=== PATIENT | female | born 1985 | race African-American/Black ===

== ENCOUNTER 2017-06-23 12:47 | Emergency (ER) | payer SELFPAY ==
[2017-06-23 13:51] LABS: Absolute Lymphocytes (CBC) 2.2 K/uL (0.7-4.9); Absolute Monocytes 0.6 K/uL (0.1-1.3); Absolute Neutrophil 8.7 K/uL (1.8-8.0); Basophils % 0.6 % (0-1.3); Eosinophils % 0.1 % (0-4.4); Hematocrit 32.1 % (36.0-45.0); Lymphocytes % 19.1 % (15.3-44.8); MCH 27.7 pg (27.0-35.0); MCV 87.5 fL (80-100); MPV 7.3 fL (7.6-11.3); Monocytes % 5.1 % (3.3-12.3); RBC Red Blood Cell Count 3.67 M/uL (3.86-4.86)
[2017-06-23 13:55] LABS: Protime INR 1.03
[2017-06-23 14:03] LABS: Bicarbonate 24 mEq/L (21-31); Glucose Level 102 mg/dL (65-120); Potassium 3.2 mEq/L (3.6-5.0); Sodium Level 138 mEq/L (135-145)
[2017-06-23 14:09] LABS: ALT/SGPT 13 IU/L (10-60); AST/SGOT 24 IU/L (10-42); Albumin 3.6 g/dL (3.2-5.5); Alkaline Phosphatase 71 IU/L (42-121); BUN Blood Urea Nitrogen 10 mg/dL (6-20); Bilirubin Direct < 0.1 mg/dL (0-0.2); Bilirubin Total 0.5 mg/dL (0.3-1.2); Protein, Total 7.3 g/dL (6.0-8.3)
[2017-06-23 14:16] LABS: Alcohol Serum/Plasma < 10 mg/dl; Salicylates Level < 4.0 mg/dl (<30)
--- NOTE | 2017-06-23 14:39 | EKG ---
Test Date: 2017-06-23 Test Time: 12:52:30 Directional Drill Operator: CESAR MEASUREMENT RESULTS: Intervals: Rate: 96 MS: 148 QRSD: 80 QT: 342 QTc: 432 [place]: P: 42 MS: 148 QRS: 33 T: 26 INTERPRETIVE STATEMENTS: Normal sinus rhythm Normal ECG No previous ECG available for comparison Electronically Signed On 06-23-17 14:38:50 CDT by Roscoe Carter
[2017-06-23] MEDS ORDERED: POTASSIUM CL SA 10 MEQ TAB PO ONE (14:44)
--- NOTE | 2017-06-23 15:05 | ER ---
Nurse's Notes [facility] Name: Chikis Murrieta Age: 31 yrs Sex: Female : 1985 Arrival Date: 06/23/2017 Time: 12:50 Bed 6 Private MD: Diagnosis: Weakness;Syncope and collapse-near;Hypokalemia;Abuse of non-psychoactive substances Presentation: 06/23 12:40 Presenting complaint: Presenting complaint: EMS states: was called out for the pt at [facility] for a panic attack, pt reported she had smoked a blunt, [employer] showed up and pt was told to go home. Pt went back to her apartment and called 911, stated she was SOB and was having a panic attack. Pt was A\\T\\O x3 for EMS BP 144/84 HR 117 96% RA BS-248 Temp-99.3, pupils pinpoint and reactive. Pt stated that she had a on July 01 with no complications. Pt told EMS on the run that her phone was possessed. 12:40 Transition of care: patient was not received from another setting of care. Onset of sv symptoms was June 23, 2017. Care prior to arrival: Glucose check: 248. 12:40 Acuity: CALLY 3 sv 12:40 Method Of Arrival: EMS: [facility] 12:41 Initial Sepsis Screen: Does the patient meet any 2 criteria? HR > 90 bpm. Yes Does the sv patient have a suspected source of infection? No. Patient's initial sepsis screen is negative. Historical: - Allergies: 13:56 Ibuprofen; sv - Home Meds: 13:56 Percocet Oral [Active]; sv - PMHx: 13:56 None; sv - PSHx: 13:56 ; sv - Immunization history:: Adult Immunizations up to date. - Social history:: Smoking status: Patient uses tobacco products, smokes one pack cigarettes per day. Patient uses street drugs, marijuana, Patient/guardian denies using alcohol. - Family history:: not pertinent. Screenin:00 Abuse screen: Denies threats or abuse. Denies injuries from another. Nutritional sv screening: No deficits noted. Tuberculosis screening: No symptoms or risk factors identified. Fall Risk None identified. Assessment: 12:50 Reassessment: Pt was undressed to get placed on the patient office rep and a bag of green sv leafy substance fell out of the pt's bra in a bag. [employer] called to come take the substance. General: Appears distressed, uncomfortable, obese, well developed, Behavior is anxious, Smells of marijuana. General: Reports "I had a baby on the nd by .". Pain: Denies pain. Neuro: Level of Consciousness is awake, alert, obeys commands, Oriented to person, place, time, situation, Moves all extremities. Full function Speech is normal, Facial symmetry appears normal, Reports "I felt like I was going to fall over.". Cardiovascular: Heart tones S1 S2 present Patient's skin is warm and dry. Pulses are 3+ in right radial artery and left radial artery Rhythm is sinus tachycardia. Respiratory: Reports shortness of breath on exertion Airway is patent Respiratory effort is even, unlabored, Respiratory pattern is regular, symmetrical, Breath sounds are clear bilaterally. Derm: Skin is clammy, Skin temperature is warm. Musculoskeletal: Range of motion: intact in all extremities. 13:30 Reassessment: Patient appears in no apparent distress at this time. Patient and/or sv family updated on plan of care and expected duration. Pain level reassessed. Patient is alert, oriented x 3, equal unlabored respirations, skin warm/dry/pink. Patient states feeling better. Patient states symptoms have improved. 14:30 Reassessment: Patient appears in no apparent distress at this time. Patient and/or sv family updated on plan of care and expected duration. Pain level reassessed. Patient is alert, oriented x 3, equal unlabored respirations, skin warm/dry/pink. Pt appeared to be sleeping with eyes closed. Pt easily rousable with verbal stimuli. Patient states feeling better. Patient states symptoms have improved. 15:20 Reassessment: Pt came out of the room yelling "Yall still aint gave me no pain sv medicine, I need some percocet or hydrocodone. Yall need to tell the dentist doctor to give me something for my tooth! Yall still aint done nothing for me." Code purple called. 15:31 Reassessment: [employer] here speaking with the pt. sv Vital Signs: 12:45 BP 150 / 84; Pulse 129; Resp 18; Temp 99.1(O); Pulse Ox 100% on R/A; Height 5 ft. 2 in. sv (157.48 cm) (R); Pain 5/10; 13:15 BP 97 / 55; Pulse 93; Resp 20; Pulse Ox 97% ; sv 13:45 BP 109 / 85; Pulse 65 MON; Resp 18; Pulse Ox 100% on R/A; sv 14:30 BP 109 / 70; Pulse 72; Resp 18; Pulse Ox 98% ; sv 15:00 BP 105 / 89; Pulse 69; Resp 18; Pulse Ox 96% ; sv 13:45 Sinus Rhythm sv ED Course: 12:50 Patient arrived in ED. sv 12:51 Evie Jamil RN is Primary Nurse. sv 12:52 EKG done, by audio visual technician. reviewed by Nile Chin MD. at1 13:07 Nile Chin MD is Attending Physician. christel 13:55 Triage completed. sv 14:21 X-ray completed. Portable x-ray completed in exam room. Patient tolerated procedure jb2 well. Note: PT'S ABDOMEN SHIELDED FOR XRAY. 14:30 Chest Single View XRAY In Process Unspecified. EDNC 15:00 Initial lab(s) drawn, by vt, sent to lab. Inserted saline lock: 18 gauge in right sv antecubital area, using aseptic technique. Blood collected. Flushed right antecubital with 5 ml normal saline. 15:00 Patient has correct armband on for positive identification. Placed in gown. Bed in low sv position. Call light in reach. Side rails up X2. coremaker floor on. Pulse ox on. NIBP on. Door closed. Head of bed elevated. 15:00 Arm band placed on right wrist. sv 15:27 No provider procedures requiring assistance completed. IV discontinued, intact, sv bleeding controlled, No redness/swelling at site. Pressure dressing applied. Administered Medications: 14:30 Drug: Potassium Chloride 40 mEq Route: PO; sv 15:28 Follow up: Response: No adverse reaction sv Outcome: 15:04 Discharge ordered by . christel 15:28 Discharged to home ambulatory. sv 15:28 Condition: stable 15:28 Discharge instructions given to patient, Instructed on discharge instructions, follow up and referral plans. Demonstrated understanding of instructions, follow-up care. 15:32 Patient left the ED. sv Signatures: Dispatcher [employer] [facility] Evie Jamil RN RN sv Anderson, Corey, MD MD cha echter, Vasquez jb2 Charis de anda, clinical trial data manager EKG Tat1 Corrections: (The following items were deleted from the chart) 13:55 12:40 Presenting complaint: sv sv 15: 15:00 General: Appears distressed, uncomfortable, obese, well developed, Behavior is sv anxious, Smells of marijuana. sv 15: 15:00 Pain: Denies pain. sv sv 15: 15:00 Neuro: Level of Consciousness is awake, alert, obeys commands, Oriented to sv person, place, time, situation, Moves all extremities. Full function Speech is normal, Facial symmetry appears normal, Reports "I felt like I was going to fall over.". sv 15: 15:00 Cardiovascular: Heart tones S1 S2 present Patient's skin is warm and dry. Pulses sv are 3+ in right radial artery and left radial artery Rhythm is sinus tachycardia sv 15: 15:00 Respiratory: Reports shortness of breath on exertion Airway is patent Respiratory sv effort is even, unlabored, Respiratory pattern is regular, symmetrical, Breath sounds are clear bilaterally. sv 15: 15:00 Derm: Skin is clammy, Skin temperature is warm sv sv 15: 15:00 Musculoskeletal: Range of motion: intact in all extremities, sv sv 15: 15:00 Reassessment: Pt was undressed to get placed on the patient office rep and a bag of sv green leafy substance fell out of the pt's bra in a bag. [employer] called to come take the substance. sv 15: 15:00 General: Reports "I had a baby on the 22nd by ." sv sv 15:31 15:20 Reassessment: Pt came out of the room yelling "Yall still aint gave me no pain sv medicine, I need some percocet or hydrocodone. Yall need to tell the dentist doctor to give me something for my tooth! Yall still aint done nothing for me." sv 16:32 14:30 Reassessment: Patient appears in no apparent distress at this time. Patient sv and/or family updated on plan of care and expected duration. Pain level reassessed. Patient is alert, oriented x 3, equal unlabored respirations, skin warm/dry/pink. Patient states feeling better. Patient states symptoms have improved. sv
--- NOTE | 2017-06-23 15:05 | EDPHYS ---
Physician Documentation [facility] Name: Chikis Murrieta Age: 31 yrs Sex: Female : 1985 Arrival Date: 06/23/2017 Time: 12:50 Bed 6 Private MD: ED Physician Nile Chin HPI: 06/23 13:18 This 31 yrs old Black Female presents to ER via Unassigned with complaints of Anxiety, christel Shortness Of Breath. 13:18 The patient has shortness of breath with light activity. Onset: The symptoms/episode christel began/occurred just prior to arrival. Duration: The symptoms are continuous, but are steadily getting better. The patient's shortness of breath has no apparent modifying factors. Associated signs and symptoms: The patient has no apparent associated signs or symptoms. Severity of symptoms: At their worst the symptoms were mild moderate in the emergency department the symptoms are unchanged. The patient has not experienced similar symptoms in the past. Historical: - Allergies: 13:56 Ibuprofen; sv - Home Meds: 13:56 Percocet Oral [Active]; sv - PMHx: 13:56 None; sv - PSHx: 13:56 ; sv - Immunization history:: Adult Immunizations up to date. - Social history:: Smoking status: Patient uses tobacco products, smokes one pack cigarettes per day. Patient uses street drugs, marijuana, Patient/guardian denies using alcohol. - Family history:: not pertinent. ROS: 13:23 Constitutional: Negative for fever, chills, and weight loss, Eyes: Negative for injury, christel pain, redness, and discharge, ENT: Negative for injury, pain, and discharge, Neck: Negative for injury, pain, and swelling, Cardiovascular: Negative for chest pain, palpitations, and edema, Abdomen/GI: Negative for abdominal pain, nausea, vomiting, diarrhea, and constipation, Back: Negative for injury and pain, : Negative for injury, bleeding, discharge, and swelling, MS/Extremity: Negative for injury and deformity, Skin: Negative for injury, rash, and discoloration, Psych: Negative for depression, anxiety, suicide ideation, homicidal ideation, and hallucinations, Allergy/Immunology: Negative for hives, rash, and allergies, Endocrine: Negative for neck swelling, polydipsia, polyuria, polyphagia, and marked weight changes, Hematologic/Lymphatic: Negative for swollen nodes, abnormal bleeding, and unusual bruising. 13:23 Respiratory: Positive for cough, shortness of breath. 13:23 Neuro: Positive for altered mental status, syncope, weakness. Exam: 13:23 Constitutional: This is a well developed, well nourished patient who is awake, alert, christel and in no acute distress. Head/Face: Normocephalic, atraumatic. Eyes: Pupils equal round and reactive to light, extra-ocular motions intact. Lids and lashes normal. Conjunctiva and sclera are non-icteric and not injected. Cornea within normal limits. Periorbital areas with no swelling, redness, or edema. ENT: Nares patent. No nasal discharge, no septal abnormalities noted. Tympanic membranes are normal and external auditory canals are clear. Oropharynx with no redness, swelling, or masses, exudates, or evidence of obstruction, uvula midline. Mucous membranes moist. Neck: Trachea midline, no thyromegaly or masses palpated, and no cervical lymphadenopathy. Supple, full range of motion without nuchal rigidity, or vertebral point tenderness. No Meningismus. Chest/axilla: Normal chest wall appearance and motion. Nontender with no deformity. No lesions are appreciated. Respiratory: Lungs have equal breath sounds bilaterally, clear to auscultation and percussion. No rales, rhonchi or wheezes noted. No increased work of breathing, no retractions or nasal flaring. Abdomen/GI: Soft, non-tender, with normal bowel sounds. No distension or tympany. No guarding or rebound. No evidence of tenderness throughout. Back: No spinal tenderness. No costovertebral tenderness. Full range of motion. Skin: Warm, dry with normal turgor. Normal color with no rashes, no lesions, and no evidence of cellulitis. MS/ Extremity: Pulses equal, no cyanosis. Neurovascular intact. Full, normal range of motion. Neuro: Awake and alert, GCS 15, oriented to person, place, time, and situation. Cranial nerves II-XII grossly intact. Motor strength 5/5 in all extremities. Sensory grossly intact. Cerebellar exam normal. Normal gait. Psych: Awake, alert, with orientation to person, place and time. Behavior, mood, and affect are within normal limits. 13:23 Chest/axilla: Inspection: normal, Palpation: is normal, Axilla: are normal. 13:23 Cardiovascular: Rate: normal, Rhythm: regular, Pulses: no pulse deficits are appreciated, Edema: is not appreciated, JVD: is not appreciated. Vital Signs: 12:45 BP 150 / 84; Pulse 129; Resp 18; Temp 99.1(O); Pulse Ox 100% on R/A; Height 5 ft. 2 in. sv (157.48 cm) (R); Pain 5/10; 13:15 BP 97 / 55; Pulse 93; Resp 20; Pulse Ox 97% ; sv 13:45 BP 109 / 85; Pulse 65 MON; Resp 18; Pulse Ox 100% on R/A; sv 14:30 BP 109 / 70; Pulse 72; Resp 18; Pulse Ox 98% ; sv 15:00 BP 105 / 89; Pulse 69; Resp 18; Pulse Ox 96% ; sv 13:45 Sinus Rhythm sv MDM: 13:07 [facility]. [facility] 13:24 Data reviewed: vital signs, nurses notes, lab test result(s), EKG, radiologic studies, [facility] scan, plain films. 06/23 13:14 Order name: Acetaminophen; Complete Time: 15:02 [facility] 06/23 13:14 Order name: Basic Metabolic Panel; Complete Time: 15:02 [facility] 06/23 13:14 Order name: CBC with Diff; Complete Time: 14:14 [facility] 06/23 13:14 Order name: ETOH Level; Complete Time: 15:02 [facility] 06/23 13:14 Order name: Hepatic Function; Complete Time: 15:02 [facility] 06/23 13:14 Order name: PT-INR; Complete Time: 14:14 [facility] 06/23 13:14 Order name: Ptt, Activated; Complete Time: 14:14 [facility] 06/23 13:14 Order name: Salicylate; Complete Time: 15:02 [facility] 06/23 13:14 Order name: Urine Drug Screen [facility] 06/23 13:14 Order name: EKG; Complete Time: 13:15 [facility] 06/23 13:14 Order name: Chest Single View XRAY [facility] 06/23 15:18 Order name: Urine Dipstick--Ancillary (enter results) 06/23 13:14 Order name: EKG - Nurse/Tech; Complete Time: 13:57 [facility] 06/23 13:14 Order name: IV Saline Lock; Complete Time: 13:57 [facility] 06/23 13:14 Order name: Labs collected and sent; Complete Time: 13:57 [facility] Administered Medications: 14:30 Drug: Potassium Chloride 40 mEq Route: PO; sv 15:28 Follow up: Response: No adverse reaction sv Disposition: 06/23/17 15:04 Discharged to Home. Impression: Weakness, Syncope and collapse - near, Hypokalemia, Abuse of non-psychoactive substances. - Condition is Stable. - Discharge Instructions: Polysubstance Abuse, Weakness, Fatigue, Near-Syncope, [id number], Weakness, [id number]. - Medication Reconciliation Form, Thank You Letter, Antibiotic Education, Prescription Opioid Use form. - Follow up: Private Physician; When: 2 - 3 days; Reason: Recheck today's complaints, Continuance of care, Re-evaluation by your physician. - Problem is new. - Symptoms have improved. Signatures: Dispatcher [employer] Evie Sam RN RN sv Anderson, Corey, MD MD cha Corrections: (The following items were deleted from the chart) 15:04 15:04 06/23/2017 15:04 Discharged to Home. Impression: Weakness; Syncope and collapse - christel near; Hypokalemia. Condition is Stable. Discharge Instructions: Polysubstance Abuse, Weakness, Fatigue, Near-Syncope, [id number], Weakness, [id number]. Forms are Medication Reconciliation Form, Thank You Letter, Antibiotic Education, Prescription Opioid Use. Follow up: Private Physician; When: 2 - 3 days; Reason: Recheck today's complaints, Continuance of care, Re-evaluation by your physician. Problem is new. Symptoms have improved. [facility] 15:32 15:04 06/23/2017 15:04 Discharged to Home. Impression: Weakness; Syncope and collapse - sv near; Hypokalemia; Abuse of non-psychoactive substances. Condition is Stable. Discharge Instructions: Polysubstance Abuse, Weakness, Fatigue, Near-Syncope, [id number], Weakness, [id number]. Forms are Medication Reconciliation Form, Thank You Letter, Antibiotic Education, Prescription Opioid Use. Follow up: Private Physician; When: 2 - 3 days; Reason: Recheck today's complaints, Continuance of care, Re-evaluation by your physician. Problem is new. Symptoms have improved. christel
[2017-06-23 15:35] LABS: Barbiturates NEGATIVE; Benzodiazepines NEGATIVE; Cocaine POSITIVE; METHAMPHETAM NEGATIVE; Opiates NEGATIVE; Phencyclidine NEGATIVE; THC Cannibis POSITIVE
--- NOTE | 2017-06-23 15:40 | RAD REPORT ---
EXAM DESCRIPTION: Paul Single View06/23/2017 2:31 pm CLINICAL HISTORY: Chest pain COMPARISON: none FINDINGS: The lungs appear clear of acute infiltrate. The heart is normal size. Calcified mediastin al lymph node is seen. IMPRESSION: No acute abnormalities displayed
[2017-06-23 15:52] LABS: Urine Blood NEGATIVE (NEG); Urine Glucose NEGATIVE (NEG); Urine Protein NEGATIVE (NEG); Urine Specific Gravity 1.015 (1.005-1.030)
== END 2017-06-23 15:32 | disposition home or self-care (01) ==
LOC: ER 12:47
DX: E87.6 Hypokalemia (principal); F55.8 Abuse of other non-psychoactive substances; R55 Syncope and collapse; R53.1 Weakness; F17.210 Nicotine dependence, cigarettes, uncomplicated; Z88.6 Allergy status to analgesic agent
CPT/HCPCS: 36415; 71045; 80048; 80076; 80307; 80320; 80329; 81003; 85025; 85610; 85730; 93005; 99285